=== PATIENT | male | born 1980 ===

== ENCOUNTER 2018-06-22 17:31 | Emergency (ER) | payer OTHER ==
[2018-06-22] MEDS ORDERED: Tetan/Diph/Pertus SYR(Tdap)* 0.5 ML SYR(BOOSTRIX) use SYR IM ONE (17:51)
[2018-06-22 18:14] VITALS: BP 146/82
[2018-06-22] MEDS ORDERED: Gelfoam 12-7 ADSORBABL SPONGE* 1 EA SPONGE TOPICAL ONE (18:41)
--- NOTE | 2018-06-22 18:53 | UC ---
Laceration HPI - HPI Summary HPI Summary: 38 yo male presents with left thumb laceration. He tells me that he was using a mandolin at home and accidentally sliced the tip of his left thumb. He bandaged the area and came to . Thinks his last tetanus was 5-6 years ago. - History Of Current Complaint Chief Complaint: UCLaceration Stated Complaint: FINGER LAC Time Seen by Provider: 06/22/18 18:53 Hx Obtained From: Patient Laceration Location: Finger Mechanism Of Injury: Sharp Trauma Onset/Duration: Sudden Onset Severity: Mild Pain Intensity: 2 Pain Scale Used: 0-10 Numeric - Allergies/Home Medications Allergies/Adverse Reactions: Allergies Allergy/AdvReac Type Severity Reaction Status Date / Time No Known Allergies Allergy Verified 06/22/18 18:14 PMH/Surg Hx/FS Hx/Imm Hx - Additional Past Medical History Additional PMH: None - Surgical History Surgical History: Yes Surgery Procedure, Year, and Place: [facility] - Family History Known Family History: Positive: Hypertension - Social History Occupation: Employed Full-time Lives: With Family Alcohol Use: Occasionally Substance Use Type: None Smoking Status (MU): Never Smoked Tobacco Review of Systems All Other Systems Reviewed And Are Negative: Yes Constitutional: Positive: Negative Skin: Positive: Other - Left thumb laceration Respiratory: Positive: Negative Cardiovascular: Positive: Negative Neurovascular: Positive: Negative Neurological: Positive: Negative Psychological: Positive: Negative Physical Exam - Summary Physical Exam Summary: GENERAL: NAD. WDWN. No pain distress. SKIN: LEFT THUMB: Distal tip with 5mm shave-like laceration through the epidermis. Mild active bleeding. Clean and without FB CHEST: No accessory muscle use. Breathing comfortably and in no distress. CV: Pulses intact. Cap refill <2seconds NEURO: Alert. PSYCH: Age appropriate behavior. Triage Information Reviewed: Yes Vital Signs: Initial Vital Signs Temp 97.4 F 06/22/18 18:07 Pulse 63 06/22/18 18:07 Resp 18 06/22/18 18:07 BP 146/82 06/22/18 18:07 Pulse Ox 100 06/22/18 18:07 Vital Signs Reviewed: Yes Laceration Repair - Laceration Repair 1 Laceration Size After Repair: Length (cm) - 0.5 Irrigation With Pressure Irrigation Device: Yes Closure Material: Skin Adhesive Closure Method: Single Layer Suture Of: Skin Laceration Course/Dx - Course/Dx Course Of Treatment: The wound was irrigated with NS. Not amenable to sutures as this is a shave- like laceration, therefore gelfoam was used on the wound and bandaged with tubegauze. tdap updated today. - Diagnosis Provider Diagnosis: Laceration of left thumb Discharge - Sign-Out/Discharge Documenting (check all that apply): Patient Departure All imaging exams completed and their final reports reviewed: No Studies - Discharge Plan Condition: Stable Disposition: HOME Patient Education Materials: Laceration (DC) Referrals: Venkatesh Bueno MD [Primary Care Provider] - Additional Instructions: If you develop a fever, shortness of breath, chest pain, new or worsening symptoms - please call your PCP or go to the ED. Your blood pressure was high at todays visit. Please see your primary provider within 4 weeks for recheck and re-evaluation. Keep the area covered until well healed. The gel-foam will come off naturally in 3-4 weeks. - Billing Disposition and Condition Condition: STABLE Disposition: Home
== END 2018-06-22 19:00 | disposition home or self-care (01) ==
LOC: UCEAST 17:31
DX: S61.012A Laceration without foreign body of left thumb without damage to nail, initial encounter (principal); W27.4XXA Contact with kitchen utensil, initial encounter; Y93.G1 Activity, food preparation and clean up; Y92.000 Kitchen of unspecified non-institutional (private) residence as the place of occurrence of the external cause; Z23 Encounter for immunization
CPT/HCPCS: 12001; 90471; 90715; 99211; 99213; A9270-GY; G0010; G0463